=== PATIENT | female | born 1955 | race Caucasian/White ===

== ENCOUNTER 2024-10-16 13:33 | Emergency (ER) | payer BC, SELFPAY ==
[2024-10-16 13:35] VITALS: BP 130/81
--- NOTE | 2024-10-16 14:18 | ED.GENMED ---
History of Present Illness
General
Chief Complaint: DVT/Possible Blood Clot
Source: patient and spouse
Exam Limitations: none
Time Seen by Provider: 10/16/24 13:44
Nursing documentation reviewed up to this point in time: agreed with
History of Present Illness
History of Present Illness:
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 Patient reports that she had some pain in the back of her knee 3 days ago that was relatively mild and resolved the next
day. She says that the next night she told to use ministry group at her [employer] and when she got home she noticed that her leg was swollen and swelling has continued since then and so she came to the ER to be evaluated. She says pain has resolved
though the leg feels a bit tight from the swelling. She denies any trauma or injury. She denies any other complaints including chest pain or shortness of breath. She denies any history of blood clots is not on any blood thinners.
Past History
Past History
ED Past Medical History: GERD, HTN, Hypercholesterolemia, Other (Lumbar disc disease with right sciatica.) and Other (Anemia)
Social History
Tobacco: Former smoker
Personal:
Living: with family
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
Family History
Family History: Other (Noncontributory)
Review of Systems
Review of Systems
All Other Systems: ROS reviewed and negative except as documented in HPI and ROS
Musculoskeletal: Reports edema
Phy Exam
Physical Exam
Physical Exam:
General: Well appearing and non-toxic
HEENT: protecting airway
Neck: appears supple
CV: No evidence of cyanosis
Resp: No accessory muscle use
Abd: Non-distended
Extremities: Patient does have +1 nonpitting edema left lower extremity when compared to right confined to the lower leg and slightly around the ankle and dorsum of the foot; she has no calf tenderness, negative Homans' sign, no palpable mass in the
popliteal region, good popliteal and dorsalis pedis pulses; no significant joint line tenderness, no left knee effusion and good range of motion of the knee; no skin changes�no erythema or warmth, rash noted
Neuro: Alert
Psych: Normal affect
Skin: Intact
Scores
Heart Failure Risk
Heart Failure Risk Score: Not Applicable
Heart Score for Chest Pain Patients
STEMI patient?: Not applicable
Withdrawal Assessment of Alcohol
Withdrawal Assessment Completed?: Not applicable
Course
Orders/Labs/Results
Orders:
Orders
10/16/24 13:34
US Periph Venous LOWER Ext LT Urgent
Comment:
Reason For Exam: pain
Vital Signs
Initial and Last Documented VS:
Initial Vital Signs
Temp Pulse Resp BP Pulse Ox
36.7 C 80 18 130/81 98
10/16/24 13:35 10/16/24 13:35 10/16/24 13:35 10/16/24 13:35 10/16/24 13:35
Last Documented Vital Signs
Temp Pulse Resp BP Pulse Ox
36.7 C 80 18 130/81 98
10/16/24 13:35 10/16/24 13:35 10/16/24 13:35 10/16/24 13:35 10/16/24 13:35
MDM/Problems Addressed
Differential Diagnosis Includes:
DVT, Gonzales's cyst, dependent edema
MDM/Problems Addressed:
68-year-old female presents with left leg swelling; had some pain behind the knee and then started with swelling over the next few days. Vitals and exam as above. Sent for left lower extremity ultrasound which was negative for DVT. Suspect that
this is likely a ruptured Gonzales's cyst. Discussed with patient advised regarding conservative measures including rest and elevation, compression. I did advise that if swelling is not improving with these conservative measures after about a week
she should have repeat ultrasound. She indicated understanding. All questions answered.
*Radiology
Radiology exam reviewed: radiology read reviewed
*Pulse Oximetry
Patient hypoxic: no
*Critical Care Note
Total Time (30-74mins, 75-104mins- exclusive of procedures): Not Applicable
Data Reviewed
Source: patient and spouse
ED Attending Note
-
Portions of this chart may have been created with voice recognition software.� Occasional wrong word or��sound alike� substitutions may have occurred due to the inherent limitations of voice recognition software.
Discharge Plan
Departure
Patient Disposition: Home (Routine Discharge)
Date of Disposition: 10/16/24
Time of Disposition: 14:14
Patient with high blood pressure during this ER visit?: No
Discharge Problem:
Left leg swelling
Instructions: Gonzales's Cyst (DC)
Prescriptions:
No Action
atenolol 50 MG tablet
25 mg PO DAILY
multivitamin 1 EACH tablet
1 ea PO DAILY
famotidine [Pepcid AC] 10 MG tablet
10 mg PO HS
lisinopril 20 MG tablet
20 mg PO DAILY
lisinopril 10 MG tablet
10 mg PO HS
omeprazole magnesium [Prilosec OTC] 20 MG tablet,delayed release (DR/EC)
20 mg PO DAILY
cholecalciferol (vitamin D3) 2,000 UNITS tablet
2,000 units PO DAILY
vitamin E (dl, acetate) 400 UNITS capsule
400 units PO DAILY
Activity Restrictions/Additional Instructions:
Thank you for visiting the Emergency Department at [facility].
1. Please schedule a follow up appointment as directed. Call first thing tomorrow morning to make an appointment.
2. If indicated, please take your medications as instructed and indicated on discharge paperwork.
3. If any of your symptoms do not improve, or persist, or become more severe within 6-12 hours, please return to the emergency department for further care.
4. Please return to the emergency department if you develop a headache, neck pain/stiffness, fever greater than 100.4F, chest pain, shortness of breath, persistent nausea, vomiting, slurred speech, difficulty walking, numbness/tingling, weakness,
signs of infection or any other symptoms that are worrisome to you.
Please call [phone] if you have any questions.
Interventions
Interventions:
*Risk Screen - Suicide Last Done: 10/16/24 13:35
*General Assessment Last Done: 10/16/24 13:35
*Neglect/Abuse Screening Last Done: 10/16/24 13:35
*ED COVID-19 Vaccine History Last Done: 10/16/24 13:35
Discharge Date and Time
Print Language: UKRAINIAN
== END 2024-10-16 14:31 | disposition home or self-care (01) ==
LOC: EMR 13:33
PROVIDERS: EMERGENCY PHYSICIAN Emergency Medicine; FAMILY PHYSICIAN Internal Medicine Geriatric Medicine
DX: R22.42 Localized swelling, mass and lump, left lower limb (principal); Z87.891 Personal history of nicotine dependence
CPT/HCPCS: 99284; 93971

== ENCOUNTER → 2025-05-28 17:56 | Outpatient (REF) | payer BC, SELFPAY | LOC: CLAB 17:56 | PROVIDERS: ATTENDING PHYSICIAN Physician Assistant Medical | DX: R39.9 Unspecified symptoms and signs involving the genitourinary system (principal) | CPT/HCPCS: 87077; 87086 ==

== ENCOUNTER → 2025-08-03 06:39 | Outpatient (REF) | payer BC, SELFPAY ==
[2025-08-03 08:03] LABS: Urine Character Clear (Clear)
[2025-08-03 08:04] LABS: Hematocrit 39.4 % (37.0-47.0); Hemoglobin 12.8 g/dL (12.0-16.0); Mean Corp Hgb Conc. 32.5 g/dL (33.0-37.0); Mean Corpuscular Volume 86.6 fL (81.0-99.0); Nucleated Red Blood Cells % 0 %; Platelet Count 212 10^3/uL (130-400); Red Cell Dist. Width 14.4 % (11.5-14.5)
[2025-08-03 08:22] LABS: Urine Squamous Cell 16-20 /LPF (Few)
[2025-08-03 08:37] LABS: ALT (SGPT) 15 U/L (0-35); AST (SGOT) 21 U/L (14-36); Albumin 4.4 g/dl (3.5-5.0); Alkaline Phosphatase 72 U/L (38-126); Blood Urea Nitrogen 15 mg/dl (7-17); Calcium 9.3 mg/dl (8.4-10.2); Carbon Dioxide 29 mmol/L (22-30); Chloride 100 mmol/L (98-107); Glucose 99 mg/dl (70-99); HDL Cholesterol 77 mg/dl; LDL Cholesterol, Calculated 89 mg/dl; Potassium 3.9 mmol/L (3.5-5.1); Sodium 137 mmol/L (135-145); Total Protein 7.3 g/dl (6.3-8.2); Very Low Density Lipoprotein 25 mg/dl (0-30); eGFR > 60.00
[2025-08-03 09:12] LABS: Vitamin D, 25-OH*** 32.7 ng/mL (30-80)
[2025-08-03 09:36] LABS: Glycohemoglobin (HgbA1c) 6.1 % (4.0-5.9)
== END ==
LOC: REG 06:39
PROVIDERS: ATTENDING PHYSICIAN Nurse Practitioner Family
DX: I10 Essential (primary) hypertension (principal); Z12.31 Encounter for screening mammogram for malignant neoplasm of breast; E78.2 Mixed hyperlipidemia; K21.9 Gastro-esophageal reflux disease without esophagitis; R73.01 Impaired fasting glucose; E66.09 Other obesity due to excess calories; Z68.32 Body mass index [BMI] 32.0-32.9, adult; E55.9 Vitamin D deficiency, unspecified; Z13.820 Encounter for screening for osteoporosis
CPT/HCPCS: 36415; 80053; 80061; 81003; 81015; 82306; 83036; 84443; 85025

== ENCOUNTER → 2025-09-10 07:26 | Outpatient (REF) | payer BC, SELFPAY | LOC: HWWDC 07:26 | PROVIDERS: ATTENDING PHYSICIAN Nurse Practitioner Family | DX: Z12.31 Encounter for screening mammogram for malignant neoplasm of breast (principal); Z13.820 Encounter for screening for osteoporosis | CPT/HCPCS: 77063; 77067; 77080 ==